=== PATIENT | female | born 2000 | race African-American/Black ===

== ENCOUNTER → 2025-11-05 | Emergency (ER) | payer SELFPAY ==
[~2025-11-05] MED LIST: Ondansetron PF 4 MG/2 ML Vial ONE
[2025-11-05 01:24] LABS: Hematocrit 38.1 % (36.0-47.0); Hemoglobin 12.8 g/dL (12.0-16.0); Mean Corpuscular Hemoglobin 29.4 pg (27.0-31.0); Mean Corpuscular Volume 87.8 fl (78.0-98.0); Platelet Count 191 10x3/uL (130-400); Red Blood Cell (RBC) Count 4.34 mill/uL (4.20-5.40); White Blood Cell (WBC) Count 5.3 10x3/uL (4.8-10.8)
[2025-11-05 01:25] LABS: MDiff Complete? YES
[2025-11-05 01:26] LABS: Platelet Adequacy Comment Appears Adequate
[2025-11-05 01:35] LABS: Anion Gap 18 mmol/L (10-20); BUN (Urea Nitrogen) 12 mg/dL (7.0-18.7); Calc. Creatinine Clearance 0 mL/min (70-130); Carbon Dioxide 20 mmol/L (22-29); Chloride 104 mmol/L (98-107); Potassium 3.2 mmol/L (3.5-5.1); Sodium 139 mmol/L (136-145)
[2025-11-05 01:42] LABS: Calcium 9.4 mg/dL (7.6-10.4); Glucose 95 mg/dL (70-105)
== END ==
LOC: NAV ERS 00:31
DX: T25.231A Burn of second degree of right toe(s) (nail), initial encounter (principal); F17.290 Nicotine dependence, other tobacco product, uncomplicated; X11.0XXA Contact with hot water in bath or tub, initial encounter
CPT/HCPCS: 80048; 85025; 96374; 96375; J2270; J2405; J3010